=== PATIENT | female | born 1950 | race Caucasian/White ===

== ENCOUNTER 2017-03-08 10:26 | Day surgery (SDC) | payer OTHER ==
[2017-03-07 18:31] VITALS: BMI 34.0
[~2017-03-08] VITALS: Ht 160 cm; Wt 90.7 kg
[~2017-03-08 10:26] MED LIST: ASPEC81 PO; CHOL100010 PO; CLC100 PO; CLON0.5T3 PO; CYM/30 PO; DULO60CA44 PO; FLNIN NAE; GLUCAGON EMERGENCY IM; HYDR-5688 PO; INSU70IN2 SC; LEVO75TA5 PO; LRS10 PO; LSN/2025 PO; MULT-653; PREG100C PO; PREG200C PO; TRAZ50TA35 PO; [UNRECOGNIZED DRUG - OTHER]; [UNRECOGNIZED DRUG - OTHER] IT
[2017-03-08 11:13] VITALS: BP 152/74; PULSE 79; TEMP 36.6; O2SAT 94; Ht 160 cm; Wt 90.7 kg
[2017-03-08] MEDS ORDERED: GLUC250C PO (11:37)
[2017-03-08] MEDS ORDERED: ACET1TAB84 PO (11:38)
--- NOTE | 2017-03-08 11:40 | History and Physical ---
History & Physical Date of Service Mar 08, 2017. History & Physical Plan of care discussed with Dr. Beltran CHIEF COMPLAINT: Intractable low back pain HISTORY OF PRESENT ILLNESS: Mrs. Rock is a 66 year old white female that is well known to the [facility] with a history of intractable lumbago secondary to lumbar post laminectomy syndrome. Patient does have an T11 to L5 spinal fusion. Since her most recent lumbar surgery, she states that her pain has been slightly better. Patient does receive intrathecal Hydromorphone and clonidine which has been efficacious towards diminishing her pain. Pain ranges from 3/10-8/10. Patient denies any constitutional complaints, neurological symptoms, radicular pain. PAST MEDICAL HISTORY: 1. Hypertension 2. Hypercholesterolemia 3. Obstructive sleep apnea 4. Anxiety disorder 5. Depressive disorder 6. Diabetes mellitus 7. Hypothyroidism 8. Rheumatoid arthritis 9. Osteoarthritis 10. Lumbar postlaminectomy syndrome 11. Gastroesophageal reflux disease 12. History of kidney stones 13. History of breast cancer 1997 PAST SURGICAL HISTORY: 1. History of multiple spinal surgeries 2. Intraurethral stent 3. Nephrectomy 4. Tonsillectomy 5. section 6. D&C 7. Partial hysterectomy 8. Thyroid nodule excision 9. Cholecystectomy 10. Hemorrhoidectomy SOCIAL HISTORY: Patient is and has 3 adult children. No alcohol use. She is a former smoker. ALLERGIES: Levofloxacin, lithium, naproxen, oxycodone, proximal a teen, penicillin, simvastatin, vancomycin, venlafaxine, adhesive, bupropion, Celebrex , clavulanic acid, and amoxicillin, famotidine, iodinated contrast media, NSAIDs , nabumetone, sulfa, amoxicillin, diclofenac MEDICATIONS: 1. Hydrocodone 5/325 one tablet every 4-6 hours as needed 2. Aspirin 81 mg daily 3. Baclofen 10 mg twice daily as needed 4. Vitamin D 1000 international units daily 5. Clonazepam 0.5 mg at bedtime 6. Docusate sodium 100 mg daily 7. Cymbalta 60 mg in the a.m. and 30 mg in the p.m. 8. Flonase nasal spray 1 spray into each nostril twice daily 9. Hydrochlorothiazide/lisinopril 20 mg/25 mg 1 tablet daily 10. Insulin subcutaneous 11. Levothyroxine sodium 75 g tablet daily 12. Multivitamin daily 13. Lyrica 200 mg, 100 mg, 200 mg daily 14. Trazodone 50 mg daily REVIEW OF SYSTEMS: Denies any constitutional, cardiac, pulmonary, neurological, GI, , extremity, endocrine, neuro, ENT, dermatological, or musculoskeletal complaints other than stated in HPI PHYSICAL EXAMINATION: VITAL SIGNS: Per admission GENERAL: Mrs. Rock is a 66 year old white female that appears her stated age. Speech and cognition is intact. She does have a flat and depressed affect. She does not appear to be in any acute distress. HEAD: Normocephalic; atraumatic. EYES: Pupils are round, equal, and reactive to light; EOM intact. ENT: No external ear discharge or lesions. No rhinorrhea or epistaxis. No mucosal lesions. PULM: Clear to auscultation. No wheezes, rales, or rhonchi. CHEST: Regular chest respiration and excursion. ABDOMEN: Active bowel sounds throughout; non-tender to palpation. No peritoneal signs. Intrathecal pump is located in the left lower quadrant of the abdomen. EXTREMITIES: Able to move extremities without any significant limitation. Sensation is intact throughout. BACK: Complete loss of lumbar lordosis. Well healed surgical incision along the thoracolumbar region. No focal midline, facet joint, or SI joint tenderness. No muscle spasm. NEURO: CN II-XII grossly intact with no focal deficits noted. AAO x 3. Gait is slowed and widened. SKIN: No lesions, erythema, or rashes noted. ASSESSMENT: Lumbar Post-Laminectomy Syndrome TREATMENT: Mrs. Rock does have a significant history of several spine surgeries resulting in a T11 to L5 fusion. She does have an intrathecal pump and catheter delivery system implanted containing Hydromorphone and clonidine which is controlling her pain adequately. The intrathecal pump CLAUDIO is currently 4 months and it is recommended that the pump be replaced. Risks and benefits were reviewed with the patient. Procedure was explained and the patient would like to proceed. She is scheduled for the pump replacement on 03/08/17.
[2017-03-08] MEDS ORDERED: LIDO 2%/EPINEPHRINE 1:100000 20 ML VIAL INFIL ONE (12:12)
[2017-03-08] MEDS ORDERED: BUPIVACAINE/EPINEPHRINE 0.25% 1:200,000 30 ML VIAL ONE (12:12)
[2017-03-08] MEDS ORDERED: BACITRACIN 50000 UNIT VIAL ONE (12:12)
[2017-03-08] MEDS ORDERED: MIDAZOLAM HCL 1 MG/ML 2ML VIAL ONE (12:13)
[2017-03-08] MEDS ORDERED: FENTANYL CITRATE INJ 50 MCG/1 ML 2 ML VIAL ONE (12:13)
[2017-03-08] MEDS ORDERED: LIDOCAINE HCL 2% 2 ML VIAL (20MG/ML) ONE (12:13)
[2017-03-08] MEDS ORDERED: PROPOFOL IV EMULSION 10 MG/ML 20 ML VIAL IV ONE (12:13)
[2017-03-08] MEDS ORDERED: SODIUM CHLORIDE 0.9% 1000ML 1,000 ML IV SCH (12:45)
--- NOTE | 2017-03-08 12:58 | History & Physical Bridge Note ---
H&P Re-Evaluation Bridge Note: I have examined the patient, reviewed the History & Physical and in the interval since the performance of the History & Physical I have noted the following changes of clinical significance: No changes noted
[2017-03-08] MEDS ORDERED: NURSING VERBAL MED ORDER ONE (13:15)
[2017-03-08] MEDS ORDERED: CLINDAMYCIN 600 MG/54 ML D5W IV SCH (13:30)
[2017-03-08] MEDS ORDERED: DEXAMETHASONE SOD INJ 4 MG/ML VIAL ONE (13:37)
[2017-03-08] MEDS ORDERED: ONDANSETRON INJ 2 MG/ML 2 ML VIAL ONE (13:37)
[2017-03-08] MEDS ORDERED: NEOSTIGMINE METHYLSULFATE 5 MG/5 ML SYR ONE (13:59)
[2017-03-08] MEDS ORDERED: GLYCOPYRROLATE INJ 0.2 MG/ML VIAL ONE (13:59)
[2017-03-08] MEDS ORDERED: ORM MISCELLANEOUS MED XX ONE (14:07)
--- NOTE | 2017-03-08 14:34 | [facility] Post Operative Brief Note ---
Immediate Operative Summary Operative Date Mar 08, 2017. Pre-Operative Diagnosis End of life intrathecal pump Post-Operative Diagnosis End of life intrathecal pump Procedure(s) Performed Replacement of Drug Administration System Intrathecal Pain Pump Surgeon Dr. Connie Beltran Digital Media Analyst Surgeon(s) None Estimated Blood Loss 5 mL Findings Uncomplicated intrathecal pump replacement Specimens Permanent specimens A: Explanted intrathecal pain pump Drains none Anesthesia GETA Complication(s) None Disposition Recovery Room / PACU
[2017-03-08] MEDS ORDERED: HYDROmorphone INJ 1 MG/ML SYR ONE (14:56)
[2017-03-08] MEDS ORDERED: EpHEDrine SULFATE INJ 50 MG/ML AMP IV PRN (15:00)
[2017-03-08] MEDS ORDERED: PROMETHAZINE HCL INJ 12.5 MG in SODIUM CHLORIDE 0.9% 50ML 50 ML IV PRN (15:00)
[2017-03-08] MEDS ORDERED: ATROPINE SULFATE 0.1 MG/ML 5ML SYR IV PRN (15:00)
[2017-03-08] MEDS ORDERED: FLUMAZENIL 0.1 MG/1 ML 10 ML VIAL IV PRN (15:00)
[2017-03-08] MEDS ORDERED: LABETALOL HCL IV 5 MG/ML 20ML IV PRN (15:00)
[2017-03-08] MEDS ORDERED: NALOXONE HCL 0.4 MG/1 ML VIAL/CARP IV PRN (15:00)
[2017-03-08] MEDS ORDERED: ONDANSETRON INJ 2 MG/ML 2 ML VIAL IV PRN (15:00)
[2017-03-08] MEDS: HYDROmorphone INJ 1 MG/ML SYR IV PRN ×2 (15:08→15:13)
--- NOTE | 2017-03-08 15:08 | Operative Note-Pain Management ---
Pain Clinic Operative Note PROCEDURE PERFORMED: Intrathecal pump replacement, pump interrogation, reprogramming, and analysis. PREOPERATIVE DIAGNOSIS: end of life intrathecal pump POSTOPERATIVE DIAGNOSIS: Same. COMPLICATIONS: None. SURGEON: Dr. Connie Beltran. ANESTHESIA: General. MATERIAL FORWARDED TO THE LAB: None. INDICATIONS: The patient had an end of life pump thus requiring replacement. The patient was explained the risks, benefits, alternatives of the procedure and agreed to proceed as above. Informed consent was obtained and witnessed. A time out was performed after the patient was brought into the Operating Room. Antibiotics were given. The patient was then induced with general anesthesia without complications and was placed in the supine position. The skin was prepped with chloraprep and draped in sterile fashion. A gortex sock was noted. The existing pump was identified and using a scalpel, electrocautery, and blunt dissection, the existing pump was exposed. The four retaining sutures were removed and the old pump was explanted. The catheter was disconnected from the old pump and CSF was noted. The new pump was opened and prepared according to med[employer]onic standards. The pump medication from the existing pump was removed and placed into the new pump. The pump catheter was secured to the new pump according to [employer] standards. The catheter access port was accessed and revealed CSF. Next, the pocket was irrigated with 3 bulb syringes full of sterile normal saline with bacitracin. Hemostasis was achieved. The new pump was placed into the pocket in the 12 O'clock position. The intrathecal pump was anchored in the pocket with 4 0 Prolene sutures. No complications were noted after the intrathecal pump was placed inside the pocket. The gortex sock was closed with 2 Ethibond in interrupted sutures. The skin and subcutaneous tissues of both incisions were closed with 0-V LOC then 3-O V LOC and then Prineo dermabond dressing without complications. The skin was cleansed and dried and Vaseline gauze followed by 4 x 4's and Tegaderms were placed for closure dressings. No complications were noted throughout the procedure. The patient tolerated the procedure and general anesthesia well and was extubated at the end of the procedure. The patient was then transferred back to the [facility] and was taken to the recovery room in stable condition. The patient will follow up with our clinic within 7 and 14 days for a wound check. No changes were made to the pump dosing regimen. Pump size inserted: 40ml Medication placed in pump: Dilaudid 3mg/ml and Clonidine 100mcg/ml to run at Dilaudid 1.3407mg/day and Clonidine 44.69mcg/day I attest to the content of the Intraoperative Record and any orders documented therein. Any exceptions are noted below.
[2017-03-08] MEDS ORDERED: HYDROCODONE/ACETAMOPHEN 5/325MG TAB PO PRN (15:15)
--- NOTE | 2017-03-08 15:29 | Discharge Instructions ---
Discharge Instructions Date of Service Mar 08, 2017. Visit Reason for Visit: End of Life Drug Administration System Pain Pump Discharge Discharge Diagnosis / Problem: end of life intrathecal pump Discharge Goals Goal(s): Decrease discomfort, Improve function Activity Recommendations Activity Limitations: per Instructions/Follow-up section Lifting Limitations: no more than 10 pounds Exercise/Sports Limitations: until after follow-up appointment May Resume Sexual Activity: after follow-up appointment Shower/Bathe: may shower/bathe in 3 days, keep incision dry Driving or Machine Use: after follow-up visit Anesthesia . Post Anesthesia Instructions: If you have had General Anesthesia or IV Sedation: * Do not drive today. * Resume driving when surgeon permits. * Do not make important decisions or sign legal documents today. * Call surgeon for: 1. Temperature elevations greater than 101 degrees F. 2. Uncontrollable pain. 3. Excessive bleeding. 4. Persistent nausea and vomiting. 5. Medication intolerance (nausea, vomiting or rash). * For nausea and vomiting use only clear liquids such as: tea, soda, bouillon until nausea subsides, then gradually increase diet as tolerated. * If you have any concerns or questions, call your surgeon's office. If physician is unavailable and it is an emergency, call 911 or go to the nearest emergency room. . Instructions / Follow-Up Instructions / Follow-Up Follow-up with the [facility] for wound check visits on 1) March 15 at 1040 with Kasandra MORRIS 2) March 22 at 1:20 PM with Kasandra Clifton PAC Please wear your abdominal binder at all times for 4 weeks. Please perform daily dressing changes and look for redness breakdown or discharge at the site. Please do not remove the purplish tape surrounding her incision You may take a shower after 3 days but no hot tub baths or swimming or soaking tub baths until after the follow-up visit. Please call with any questions or concerns [phone] No changes were made to your pump medication dosing today. Please use [place] 5/325 mg 1 tablet by mouth every 4 hours as needed for pain. A hand prescription was provided to you at today's visit. Diet Recommendations Recommended Home Diet: resume previous diet Procedures Procedures Performed: Replacement of Drug Administration System Intrathecal Pain Pump Pending Studies Studies pending at discharge: no Medical Emergencies . Who to Call and When: Medical Emergencies: If at any time you feel your situation is an emergency, please call 911 immediately. . Non-Emergent Contact Non-Emergency issues call your: Primary Care Provider Call Non-Emergent contact if: you have a fever, your pain is not controlled, your pain is worsening, your pain is unusual for you, your pain is concerning you, wound has increased drainage, wound has increased redness, wound has increased pain, you have any medication questions . Past History Medical & Surgical History: (1) Lumbar postlaminectomy syndrome . "Provider Documentation" section prepared by Connie Beltran. . [place] Drug Monitoring Program Search Results: patient reviewed within database, no issues identified
--- NOTE | 2017-03-08 15:47 | Anesthesiology Progress Note ---
Anesthesia Post Op Note Date & Time Mar 08, 2017 at 15:46 Vital Signs Pain Intensity: 5 Vital Signs Past 12 Hours Date Time Temp Pulse Resp B/P (MAP) Pulse Ox O2 Delivery O2 Flow Rate FiO2 03/08/17 15:32 85 14 03/08/17 15:32 87 14 03/08/17 15:31 144/69 03/08/17 15:31 36.4 85 16 144/69 (83) 100 Nasal Cannula 2 03/08/17 15:27 90 11 91 03/08/17 15:27 89 11 03/08/17 15:26 149/73 03/08/17 15:22 86 14 100 03/08/17 15:22 85 14 03/08/17 15:21 146/86 03/08/17 15:17 98 13 03/08/17 15:17 93 13 03/08/17 15:16 163/80 03/08/17 15:16 163/80 03/08/17 15:15 95 19 91 03/08/17 15:15 96 19 03/08/17 15:15 96 19 03/08/17 15:15 95 19 91 03/08/17 15:11 160/73 03/08/17 15:11 160/73 03/08/17 15:10 87 16 100 03/08/17 15:10 87 16 03/08/17 15:10 87 16 100 03/08/17 15:10 87 16 03/08/17 15:06 153/82 03/08/17 15:06 153/82 03/08/17 15:05 92 13 03/08/17 15:05 92 13 100 03/08/17 15:05 92 13 100 03/08/17 15:05 92 13 03/08/17 15:01 159/77 03/08/17 15:01 159/77 03/08/17 15:00 92 14 03/08/17 15:00 92 14 03/08/17 15:00 92 14 100 03/08/17 15:00 92 14 100 03/08/17 14:56 163/81 03/08/17 14:56 163/81 03/08/17 14:55 92 13 03/08/17 14:55 92 13 03/08/17 14:55 92 13 100 03/08/17 14:55 92 13 100 03/08/17 14:51 162/82 03/08/17 14:51 162/82 03/08/17 14:50 95 13 100 03/08/17 14:50 95 13 100 03/08/17 14:50 95 13 03/08/17 14:50 95 13 03/08/17 14:48 161/80 03/08/17 14:48 161/80 03/08/17 14:46 176/88 03/08/17 14:46 176/88 03/08/17 14:45 102 21 96 03/08/17 14:45 102 21 03/08/17 14:45 102 21 03/08/17 14:45 36.4 101 14 176/88 (100) 94 Oxymask 10 03/08/17 14:45 102 21 96 03/08/17 11:13 36.6 79 20 152/74 (100) 94 Room Air Notes Mental Status: alert / awake / arousable, participated in evaluation Pt Amnestic to Procedure: Yes Nausea / Vomiting: adequately controlled Pain: adequately controlled Airway Patency, RR, SpO2: stable & adequate BP & HR: stable & adequate Hydration State: stable & adequate Anesthetic Complications: no major complications apparent
[2017-03-08 15:50] VITALS: BP 134/63; PULSE 89; TEMP 36.4; O2SAT 93
[2017-03-08 16:20] VITALS: BP 149/70; PULSE 88; O2SAT 93
[2017-03-08 16:45] VITALS: BP 152/71; PULSE 96; TEMP 36.4; O2SAT 93
[2017-03-15] MEDS ORDERED: clonidine INT SPINAL (10:57)
[2017-03-15] MEDS ORDERED: hydromorphone INT SPINAL (10:57)
== END 2017-03-08 16:50 | disposition home or self-care (01) ==
LOC: C.ACU 10:26
PROVIDERS: ATTEND Anesthesiology
DX: T85.615A Breakdown (mechanical) of other nervous system device, implant or graft, initial encounter (principal); M96.1 Postlaminectomy syndrome, not elsewhere classified; M54.5 Low back pain; G89.28 Other chronic postprocedural pain; I10 Essential (primary) hypertension; E78.00 Pure hypercholesterolemia, unspecified; G47.33 Obstructive sleep apnea (adult) (pediatric); F41.9 Anxiety disorder, unspecified; F32.9 Major depressive disorder, single episode, unspecified; E11.9 Type 2 diabetes mellitus without complications; E03.9 Hypothyroidism, unspecified; M06.9 Rheumatoid arthritis, unspecified; E66.9 Obesity, unspecified; M19.90 Unspecified osteoarthritis, unspecified site; K21.9 Gastro-esophageal reflux disease without esophagitis; Z87.442 Personal history of urinary calculi; Z85.3 Personal history of malignant neoplasm of breast; Z90.5 Acquired absence of kidney; Z90.89 Acquired absence of other organs; Z90.711 Acquired absence of uterus with remaining cervical stump; Z90.49 Acquired absence of other specified parts of digestive tract; Z88.1 Allergy status to other antibiotic agents; Z88.5 Allergy status to narcotic agent; Z98.1 Arthrodesis status; Z88.0 Allergy status to penicillin; Z91.041 Radiographic dye allergy status; Z79.82 Long term (current) use of aspirin; Y82.8 Other medical devices associated with adverse incidents

== ENCOUNTER → 2017-03-15 | Outpatient (CLI) | payer OTHER ==
[~2017-03-15] MED LIST changes: +ACET1TAB84 PO; +GLUC250C PO; -[UNRECOGNIZED DRUG - OTHER]; +clonidine INT SPINAL; +hydromorphone INT SPINAL
--- NOTE | 2017-03-15 12:22 | DIAGNOSTIC IMAGING REPORT ---
C-SPINE ROUTINE 4 OR 5 VIEWS HISTORY: 66 years-old Female CERVICAL RADICULOPATHY chronic neck pain with bilateral upper extremity pain for 3 year. No reported trauma COMPARISON: None available TECHNIQUE: 5 views of the cervical spine FINDINGS: There is reversal the normal cervical lordosis with approximately 15 degrees kyphotic curvature centered at C4-C5. Severe intervertebral disc space narrowing is noted at C4-C5 and C5-C6 with moderate intervertebral disc space narrowing at C6-C7. Multilevel endplate spurring and facet arthropathy is also noted. These changes result in moderate right-sided foraminal narrowing at C3-C4 and mild multilevel foraminal stenosis on the left, notably at C5-C6 and C6-C7. No acute fracture or subluxation identified. There is atherosclerosis in the region of the carotid bulbs. Partially imaged fusion hardware of the mid thoracic spine. IMPRESSION: 1. No acute fracture or subluxation. 2. Multilevel discogenic degenerative changes, facet arthropathy and endplate spurring as above with reversal of the normal cervical lordotic curvature centered at C4-C5. 3. Degenerative changes result in multilevel neural foraminal stenosis as above. The above report was generated using voice recognition software. It may contain grammatical, syntax or spelling errors. Electronically signed by: Jorge L Trevino M.D. 03/15/2017 12:20 PM Dictated Date/Time: 03/15/2017 12:17 PM
== END | disposition home or self-care (01) ==
LOC: C.RADBC 11:54
PROVIDERS: ATTEND Physician Assistant Medical
DX: M54.12 Radiculopathy, cervical region (principal); M99.71 Connective tissue and disc stenosis of intervertebral foramina of cervical region

== ENCOUNTER → 2017-03-22 | Outpatient (CLI) | payer OTHER ==
[~2017-03-22] MED LIST changes: -[UNRECOGNIZED DRUG - OTHER] IT
[2017-03-22 17:21] LABS: BASO % 0.3 %; BASO ABS # 0.03 K/uL (0-0.2); COMPLETE YES; EOS % 0.5 %; HEMATOCRIT 40.2 % (37-47); IG% 0.1 %; LYMPH % 33.9 %; LYMPH ABS # 3.12 K/uL (1.2-3.4); MEAN CORPUSCULAR HEMOGLOBIN 27.5 pg (25-34); MEAN CORPUSCULAR HGB CONC 31.6 g/dl (32-36); MEAN PLATELET VOLUME 11.7 fL (7.4-10.4); MONO % 7.2 %; PLATELET COUNT 323 K/uL (130-400); RED BLOOD COUNT 4.62 M/uL (4.2-5.4); WHITE BLOOD COUNT 9.19 K/uL (4.8-10.8)
[2017-03-22 17:45] LABS: ALT/SGPT 42 U/L (12-78); AST/SGOT 18 U/L (15-37); BLOOD UREA NITROGEN 20 mg/dl (7-18); BUN/CREATININE RATIO 27.9 (10-20); CALCIUM 9.2 mg/dl (8.5-10.1); CARBON DIOXIDE 32 mmol/L (21-32); CHLORIDE 100 mmol/L (98-107); CREATININE 0.71 mg/dl (0.60-1.20); GLUCOSE 166 mg/dl (70-99); POTASSIUM 3.5 mmol/L (3.5-5.1); SODIUM 140 mmol/L (136-145)
[2017-03-22 17:47] LABS: ALB/GLOB RATIO 0.9 (0.9-2); ALKALINE PHOSPHATASE 161 U/L (45-117); RHEUMATOID FACTOR < 10.0 U/mL (0-15)
[2017-03-22 17:55] LABS: LYME DISEASE AB IGG NEG (NEG)
[2017-03-22 18:06] LABS: LYME DISEASE AB IGM POS (NEG)
[2017-03-28 14:16] LABS: 18KDIGG BAND NONREACTIVE (NONREACTIVE); 23KDIGG BAND NONREACTIVE (NONREACTIVE); 23KDIGM BAND REACTIVE (NONREACTIVE); 28KDIGG BAND NONREACTIVE (NONREACTIVE); 30KDIGG BAND NONREACTIVE (NONREACTIVE); 39KDIGG BAND NONREACTIVE (NONREACTIVE); 39KDIGM BAND NONREACTIVE (NONREACTIVE); 41KDIGG BAND NONREACTIVE (NONREACTIVE); 41KDIGM BAND REACTIVE (NONREACTIVE); 45KDIGG BAND NONREACTIVE (NONREACTIVE); 58KDIGG BAND NONREACTIVE (NONREACTIVE); 66KDIGG BAND REACTIVE (NONREACTIVE); 93KDIGG BAND NONREACTIVE (NONREACTIVE)
== END | disposition home or self-care (01) ==
LOC: C.LABBC 14:41
PROVIDERS: ATTEND Physician Assistant Medical
DX: M79.1 Myalgia (principal)

== ENCOUNTER → 2017-06-09 | Outpatient (CLI) | payer OTHER ==
--- NOTE | 2017-06-09 14:29 | DIAGNOSTIC IMAGING REPORT ---
MRI OF THE CERVICAL SPINE WITHOUT IV CONTRAST CLINICAL HISTORY: Cervical radiculopathy. COMPARISON STUDY: Radiographs of the cervical spine dated 03/15/2017. TECHNIQUE: MRI of the cervical spine is performed utilizing various T1 and T2-weighted sequences in the axial and sagittal planes. IV contrast was not administered for this examination. FINDINGS: Cervical spine: Vertebral body height is maintained throughout the cervical spine. There is minimal anterolisthesis at C4-C5. Minimal retrolisthesis is seen at C6-C7. There is straightening of the cervical lordosis, with reversal centered at C5. The atlantodental articulation appears maintained, noting productive degenerative change. The spinous processes are intact as imaged. Small anterior osteophytes are noted throughout the cervical spine. No destructive bony lesion is seen. Marrow signal intensity is slightly heterogeneous. Intervertebral discs: Degenerative disc desiccation is seen throughout the cervical spine. There is advanced loss of height at C4-C5. Moderate loss of height is seen at C5-C6 and C6-C7. Spinal cord: The cervical spinal cord is normal in morphology and signal intensity. C2-C3: A tiny posterior disc osteophyte complex is of no consequence. Facet arthropathy causes minimal left neural foraminal stenosis. C3-C4: A small posterior disc osteophyte complex abuts the ventral cord. Uncovertebral and facet arthropathy cause mild to moderate left and mild right neural foraminal stenosis. C4-C5: A posterior disc osteophyte complex effaces the ventral cord. Uncovertebral and facet arthropathy causes moderate left and minimal right neural foraminal stenosis. C5-C6: A posterior disc osteophyte complex effaces the ventral cord. Predominantly uncovertebral arthropathy causes moderate left neuroforaminal stenosis. C6-C7: A posterior disc osteophyte complex effaces the ventral cord. Uncovertebral and facet arthropathy cause severe left and moderate to severe right neural foraminal stenosis. The minimum AP canal diameter at this level measures 7 mm. C7-T1: Unremarkable. Soft tissues: The prevertebral and paraspinous soft tissues are within normal limits. There are left-sided thyroid nodules which measure up to 2.4 cm. Brain parenchyma: The partially imaged brain parenchyma at the skull base is normal in appearance. IMPRESSION: 1. Multilevel cervical spondylosis as above, greatest at C6-C7. See discussion for detailed level by level analysis. 2. No destructive bony process is identified. 3. Large left-sided thyroid nodules are identified. Follow-up with a thyroid ultrasound is recommended for further assessment. Dictated: 06/09/2017 2:03 PM Transcribed: 06/09/2017 2:28 PM [email or web address] Electronically signed by: Westley Choi M.D. 06/09/2017 2:49 PM Dictated Date/Time: 06/09/2017 2:03 PM
== END | disposition home or self-care (01) ==
LOC: C.MRIBC 13:16
PROVIDERS: ATTEND Physician Assistant Medical
DX: M54.12 Radiculopathy, cervical region (principal)